=== PATIENT | male | born 2000 | race Caucasian/White ===

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

== ENCOUNTER 2021-10-28 11:49 | Emergency (ER) | payer OTHER ==
[~2021-10-28] VITALS: Ht 165.1 cm; Wt 54.5 kg
[~2021-10-28 11:49] MED LIST changes: +ZYRTEC SYRUP1 MG/ML PO
[2021-10-28 11:51] VITALS: TEMP 95.7
[2021-10-28] MEDS ORDERED: NORCO 325 MG-51 TAB PO (14:07)
[2021-10-28 14:21] VITALS: BP 108/68; PULSE 71
== END 2021-10-28 14:30 | disposition home or self-care (01) ==
LOC: COL.ER 11:49
DX: S06.9X9A Unspecified intracranial injury with loss of consciousness of unspecified duration, initial encounter (principal); S13.4XXA Sprain of ligaments of cervical spine, initial encounter; S60.511A Abrasion of right hand, initial encounter; S80.811A Abrasion, right lower leg, initial encounter; M25.561 Pain in right knee; V89.2XXA Person injured in unspecified motor-vehicle accident, traffic, initial encounter; Y93.55 Activity, bike riding; Y92.410 Unspecified street and highway as the place of occurrence of the external cause